=== PATIENT | female | born 1955 | race Caucasian/White ===

== ENCOUNTER 2022-08-24 20:42 | Observation (INO) | payer MEDICARE ==
[2022-08-24] MEDS ORDERED: MAG HYDROX/AL HYDROX/SIMETH 30 ML, HYOSCYAMINE ELIXIR 10 ML, LIDOCAINE VISCOUS 2% 10 ML PO STA ×3 (21:32)
--- NOTE | 2022-08-24 21:34 | ED ---
ENT HPI - General Chief complaint: ENT Stated complaint: MORALES from FB Time Seen by Provider: 08/24/22 21:27 Source: patient, RN notes reviewed, old records reviewed Mode of arrival: ambulatory Limitations: no limitations - History of Present Illness Initial comments: This is a 67-year-old female presents to ER today for evaluation. She is presented today for esophageal foreign body unable tolerate secretions cannot swallow she was eating carrots tonight and was unable to vomit up care feels like it is stuck and is unable to tolerate any oral intake including solids and liquids and saliva. MD complaint: foreign body -: hour(s) Location: throat Severity: severe Severity scale (1-10): 10 Consistency: constant Improves with: none Worsens with: none Context-Epistaxis: history of similar Associated Symptoms: other (0) - Related Data Allergies Allergy/AdvReac Type Severity Reaction Status Date / Time NSAIDS (Non-Steroidal Allergy Unknown Verified 08/24/22 20:48 Anti-Inflamma Penicillins Allergy Unknown Verified 08/24/22 20:48 Sulfa (Sulfonamide Allergy Unknown Verified 08/24/22 20:48 Antibiotics) Review of Systems ROS Statement: Those systems with pertinent positive or pertinent negative responses have been documented in the HPI. ROS Other: All systems not noted in ROS Statement are negative. Past Medical History Past Medical History: No Reported History Additional Past Medical History / Comment(s): kidney stones History of Any Multi-Drug Resistant Organisms: None Reported Past Surgical History: Appendectomy, Orthopedic Surgery, Tonsillectomy Past Psychological History: No Psychological Hx Reported Smoking Status: Never smoker Past Alcohol Use History: None Reported Past Drug Use History: None Reported General Exam Limitations: no limitations General appearance: alert, in no apparent distress, anxious Head exam: Present: atraumatic, normocephalic, normal inspection Eye exam: Present: normal appearance, PERRL, EOMI. Absent: scleral icterus, conjunctival injection, periorbital swelling ENT exam: Present: normal exam, mucous membranes moist Neck exam: Present: normal inspection. Absent: tenderness, meningismus, lymphadenopathy Respiratory exam: Present: normal lung sounds bilaterally. Absent: respiratory distress, wheezes, rales, rhonchi, stridor Cardiovascular Exam: Present: regular rate, normal rhythm, normal heart sounds. Absent: systolic murmur, diastolic murmur, rubs, gallop, clicks GI/Abdominal exam: Present: soft, normal bowel sounds. Absent: distended, tenderness, guarding, rebound, rigid Extremities exam: Present: normal inspection, full ROM, normal capillary refill. Absent: tenderness, pedal edema, joint swelling, calf tenderness Back exam: Present: normal inspection Neurological exam: Present: alert, oriented X3, CN II-XII intact Psychiatric exam: Present: normal affect, normal mood Skin exam: Present: warm, dry, intact, normal color. Absent: rash Course Vital Signs 08/24/22 08/24/22 20:49 20:59 Temperature 98.8 F 98.4 F Pulse Rate 112 H 98 Respiratory 22 16 Rate Blood Pressure 161/87 160/87 O2 Sat by Pulse 98 99 Oximetry - Reevaluation(s) Reevaluation #1: 08/24/22 22:42 Medical record is reviewed Reevaluation #2: 08/24/22 22:42 Patient is mildly anxious but not short of breath Reevaluation #3: 08/24/22 22:42 Patient informed results and questions have been answered - Consultations Consultation #1: spoke Dr. Garcia regarding GI evaluation she is agreeable Medical Decision Making - Medical Decision Making 67 female DF for evaluation. Patient's positive esophageal foreign body unable to tolerate patient's, will admit in observation status for GI procedures Disposition Clinical Impression: Esophageal foreign body Disposition: ADMITTED IP TO THIS [facility] Condition: Good Is patient prescribed a controlled substance at d/c from ED?: No Referrals: None,Stated [REFERRING] - 1-2 days Time of Disposition: 22:45
--- NOTE | 2022-08-24 21:57 | XR ---
EXAMINATION TYPE: XR chest 1V portable DATE OF EXAM: 08/24/2022 9:53 PM COMPARISON: None TECHNIQUE: XR chest 1V portable Frontal view of the chest. CLINICAL INDICATION:Female, 67 years old with history of FB; FINDINGS: Lungs/Pleura: There is no evidence of pleural effusion, focal consolidation, or pneumothorax. Pulmonary vascularity: Unremarkable. Heart/mediastinum: Cardiomediastinal silhouette is unremarkable. Musculoskeletal: No acute osseous pathology. IMPRESSION: No acute cardiopulmonary disease/process.
[2022-08-24] MEDS ORDERED: ONDANSETRON 4 MG/2 ML VIAL IVP STA (22:40)
[2022-08-24] MEDS ORDERED: SODIUM CHLORIDE 0.9% 1,000 ML IV STA (22:40)
[2022-08-24] MEDS ORDERED: MORPHINE SULFATE 2 MG/ML SYRINGE IVP STA (22:40)
[2022-08-24 23:33] LABS: Basophils # (A) 0.1 k/uL (0-0.2); Basophils % (A) 1 %; Eosinophils % (A) 0 %; HCT 39.2 % (34.0-46.0); HGB 12.9 gm/dL (11.4-16.0); Lymphocytes # (A) 1.3 k/uL (1.0-4.8); Lymphocytes % (A) 13 %; MCH 29.2 pg (25.0-35.0); MCHC 32.9 g/dL (31.0-37.0); MCV 88.6 fL (80.0-100.0); Monocytes # (A) 0.6 k/uL (0-1.0); Monocytes % (A) 6 %; Neutrophils # (A) 8.2 k/uL (1.3-7.7); Neutrophils % (A) 80 %; Platelet Count 259 k/uL (150-450); RBC 4.43 m/uL (3.80-5.40); RDW 13.2 % (11.5-15.5); WBC 10.3 k/uL (3.8-10.6)
[2022-08-24 23:45] LABS: INR 1.1 (<1.2); Partial Thromboplastin Time 28.1 sec (22.0-30.0); Prothrombin Time 11.7 sec (9.0-12.0)
[2022-08-25 00:09] LABS: ALT 17 U/L (4-34); AST 24 U/L (14-36); African American GFR (CKD) >90 (>60 ml/min/1.73 sqM); Albumin 4.2 g/dL (3.5-5.0); Alkaline Phosphatase 113 U/L (38-126); Anion Gap 7 mmol/L; Blood Urea Nitrogen 22 mg/dL (7-17); Calcium 8.5 mg/dL (8.4-10.2); Carbon Dioxide 24 mmol/L (22-30); Chloride 113 mmol/L (98-107); Glucose 114 mg/dL (74-99); Magnesium 1.9 mg/dL (1.6-2.3); Non-African American GFR(CKD) >90 (>60 ml/min/1.73 sqM); Potassium 3.5 mmol/L (3.5-5.1); Sodium 144 mmol/L (137-145); Total Bilirubin 0.7 mg/dL (0.2-1.3)
[2022-08-25 01:13] VITALS: RESP 16
--- NOTE | 2022-08-25 08:08 | P.DS ---
Providers Date of admission: 08/24/22 22:40 Expected date of discharge: 08/25/22 Attending physician: Neelam Garcia Primary care physician: Maria Fernanda Gibbs - Discharge Diagnosis(es) (1) Esophageal foreign body 67-year-old female who presented to the emergency department after eating a soft care at with feeling ready. Patient states that she felt as if the food was lodged in her chest. She was able to vomit up the care at home however states that she still felt like something was stuck and she was unable to swallow her saliva. She then had some pain that radiated into her chest to the right shoulder. She was admitted for observation and possible foreign body removal. However, this morning patient states she is feeling fine. She states that it has passed. She is able to swallow without difficulty. She denies any abdominal pain, nausea or vomiting. Patient trialed water as well as applesauce without any difficulty swallowing. She does also have a history of difficulty swallowing solid foods such as chicken and bread. Again appears as a foreign body has resolved on its own, patient does not require any endoscopic evaluation for foreign body removal. It is recommended to patient to follow-up with gastr oenterology for outpatient endoscopy in the future. Current Visit: Yes Status: Acute Hospital Course: 67-year-old female who presented to the emergency department after eating a soft care at with feeling ready. Patient states that she felt as if the food was lodged in her chest. She was able to vomit up the care at home however states that she still felt like something was stuck and she was unable to swallow her saliva. She then had some pain that radiated into her chest to the right shoulder. She was admitted for observation and possible foreign body removal. However, this morning patient states she is feeling fine. She states that it has passed. She is able to swallow without difficulty. She denies any abdominal pain, nausea or vomiting. Patient trialed water as well as applesauce without any difficulty swallowing. She does also have a history of difficulty swallowing solid foods such as chicken and bread. Again appears as a foreign body has resolved on its own, patient does not require any endoscopic evaluation for foreign body removal. It is recommended to patient to follow-up with gas troenterology for outpatient endoscopy in the future. Dr. Harry Garcia I agree with the dictator's note, documented as a scribe by Kelly Phillip. Patient Condition at Discharge: Stable Plan - Discharge Summary New Discharge Prescriptions: No Action No Known Home Medications Discharge Medication List No Known Home Medications 08/25/22 [History] Follow up Appointment(s)/Referral(s): Neelam Garcia MD [STAFF PHYSICIAN] - 2 Weeks None,Stated [REFERRING] - 1-2 days Discharge Disposition: HOME SELF-CARE
[2022-08-25 08:31] VITALS: BP 158/82; PULSE 78; TEMP 97.8
--- NOTE | 2022-08-25 11:06 | P.HPIM ---
History of Present Illness H&P Date: 08/25/22 Chief Complaint: Dysphagia, esophageal foreign body This is a pleasant 67-year-old female who presented to the emergency department yesterday evening after eating a small bite of a cooked care at around 3 PM. Patient states it felt like it gets stuck in her throat, she vomited however after vomiting she still felt as if her saliva would not go down and that there was something stuck in her esophagus. She presented to the emergency department with complaints of some gas pain and bubbles in her chest radiating up to her right shoulder. She was admitted for observation for possible foreign body removal. She states that she has a history of narrowed esophagus in about 30 years ago underwent an EGD at that time and a procedure. She is not followed with anyone since but states that she frequently gets food that sticks especially dry foods like chicken and bread. This morning the patient states she feels better, she has no shortness of breath, she has no pain in her chest. She feels as if it has passed. I allowed the patient to take a sip of water and she states she feels fine, everything went down well. We then trialed some applesauce and again she states she feels well, she has no difficulty swallowing. She has no pain in her chest. she denies any abdominal pain, nausea, or vomiting.Patient also has a history of IBS with mixed constipation and diarrhea, she is not followed with gastroenterology.vital signs are stable, she's been afebrile. Review of Systems REVIEW OF SYSTEMS: CARDIOPULMONARY: No chest pain or shortness of breath. Gastrointestinal: patient initially felt that she had a foreign body, esophageal tightness and difficulty swallowing. No nausea or vomiting. No hematemesis, coffee-ground emesis. No rectal bleeding, or melena. GENITOURINARY: No dysuria or hematuria. MUSCULOSKELETAL: Reports normal range of motion. SKIN: No rashes. No jaundice. ENDOCRINE: No chills, fevers. No excessive weight gain or loss. No polydipsia or polyuria. PSYCHIATRIC: Unremarkable. NEUROLOGY: No change in mental status. Denies dizziness, headache. ENT: Vision unremarkable. CONSTITUTIONAL: No recent weight loss. No fever, chills, night sweats. Past Medical History Past Medical History: Osteoarthritis (OA), Pneumonia, Renal Disease Additional Past Medical History / Comment(s): Dysphagia at times, kidney stones, IBS, bronchitis, arthritis R knee with chronic R knee pain, IBS. History of Any Multi-Drug Resistant Organisms: None Reported Past Surgical History: Appendectomy, Orthopedic Surgery, Tonsillectomy Additional Past Surgical History / Comment(s): Lithotripsy, R knee arthroscopic surgeries x 3, D&C. Past Anesthesia/Blood Transfusion Reactions: Previous Problems w/ Anesthesia, Motion Sickness, Postoperative Nausea & Vomiting (PONV) Additional Past Anesthesia/Blood Transfusion Reaction / Comment(s): Difficulty waking. Smoking Status: Never smoker - Past Family History Father Additional Family Medical History / Comment(s): Father is , he had rheumatic fever and from "heart problems". Mother Additional Family Medical History / Comment(s): Mother at the age of 71 yrs from a unknown source bleed. Medications and Allergies Home Medications Medication Instructions Recorded Confirmed Type No Known Home Medications 08/25/22 08/25/22 History Allergies Allergy/AdvReac Type Severity Reaction Status Date / Time latex Allergy Rash/Hives Verified 08/25/22 06:46 NSAIDS (Non-Steroidal Allergy Rash/Hives Verified 08/25/22 06:46 Anti-Inflamma Penicillins Allergy Anaphylaxis Verified 08/25/22 06:46 /Hives Sulfa (Sulfonamide Allergy Rash/Hives Verified 08/25/22 06:46 Antibiotics) acetaminophen [From Tylenol] AdvReac Rapid Verified 08/25/22 06:47 Heart Rate steroids Allergy Rash/Hives Uncoded 08/25/22 06:46 Physical Exam Vitals: Vital Signs Temp Pulse Pulse Resp BP BP Pulse Ox 08/25/22 07:30 97.8 F 78 16 158/82 99 08/25/22 06:55 98.1 F 68 16 167/85 98 08/25/22 05:35 97.8 F 82 16 157/98 100 08/25/22 01:12 80 16 155/83 98 08/24/22 23:27 98.2 F 80 18 160/128 100 08/24/22 20:59 98.4 F 98 16 160/87 99 08/24/22 20:49 98.8 F 112 H 22 161/87 98 Intake and Output 08/24/22 08/25/22 08/25/22 22:59 06:59 14:59 Other: Weight 84.822 kg 84.822 kg General appearance: The patient is alert, oriented, appears in no acute distress. HET: Head is normocephalic and atraumatic. Conjunctiva pink. Sclera anicteric. Neck: Supple without lymphadenopathy. Trachea midline. Heart: S1 S2. Regular rate and rhythm. Lungs: Clear to auscultation. Abdomen: Soft, nontender, nondistended with bowel sounds. No guarding or rigidity. Skin: No rashes. No jaundice. Extremities: Normal skin color and turgor. No pedal edema. Neurological: No focal deficits. Alert and oriented x3. Results CBC & Chem 7: 08/24/22 23:18 08/24/22 23:18 Labs: Abnormal Lab Results - Last 24 Hours (Table) 08/24/22 08/24/22 Range/Units 23:18 23:18 Neutrophils # 8.2 H (1.3-7.7) k/uL Chloride 113 H (98-107) mmol/L BUN 22 H (7-17) mg/dL Glucose 114 H (74-99) mg/dL Chest x-ray: report reviewed (No cardiopulmonary acute process or disease) Thrombosis Risk Factor Assmnt - Choose All That Apply Any of the Below Risk Factors Present?: Yes Each Factor Represents 1 point: Obesity (BMI >25), Swollen legs (current) Other Risk Factors: Yes Each Risk Factor Represents 2 Points: Age 61-74 years Other congenital or acquired thrombophilia - If yes, enter type in comment: No Thrombosis Risk Factor Assessment Total Risk Factor Score: 4 Thrombosis Risk Factor Assessment Level: Moderate Risk Assessment and Plan (1) Esophageal foreign body Narrative/Plan: 67-year-old female who presented to the emergency department after eating a soft care at with feeling ready. Patient states that she felt as if the food was lodged in her chest. She was able to vomit up the care at home however states that she still felt like something was stuck and she was unable to swallow her saliva. She then had some pain that radiated into her chest to the right shoulder. She was admitted for observation and possible foreign body removal. Chest x-ray showed no cardiopulmonary acute process or disease. However, this morning patient states she is feeling fine. She states that it has passed. She is able to swallow without difficulty. She denies any abdominal pain, nausea or vomiting. Patient trialed water as well as applesauce without any difficulty swallowing. She does also have a history of difficulty swallowing solid foods s uch as chicken and bread. Again appears as a foreign body has resolved on its own, patient does not require any endoscopic evaluation for foreign body removal. It is recommended to patient to follow-up with gastroenterology for outpatient endoscopy in the future. Current Visit: Yes Status: Acute Code(s): T18.108A - UNSP FOREIGN BODY IN ESOPHAGUS CAUSING OTH INJURY, INIT SNOMED Code(s): 94958364 Plan: 1. Continue symptomatic and supportive care 2. Start patient on clear liquid and advanced to full liquid diet 3. Esophageal foreign body passed on its own, patient does not require any endoscopic intervention at this time. 4. Patient may be discharged home after tolerating full liquid diet. Patient instructed to stand full liquid diet throughout today. 5. Patient encouraged to follow-up with gastroenterology for outpatient EGD in the future to evaluate for history of dysphagia. Patient is cleared for discharge. Dr. Harry Garcia I agree with the dictator's note, documented as a scribe by Kelly Phillip.
== END 2022-08-25 11:23 | disposition home or self-care (01) ==
LOC: EC 20:42 → 6NMEDSUR 22:40
PROVIDERS: ADMIT Internal Medicine Gastroenterology; ATTEND Internal Medicine Gastroenterology
DX: T18.128A Food in esophagus causing other injury, initial encounter (principal); K58.2 Mixed irritable bowel syndrome; M17.11 Unilateral primary osteoarthritis, right knee; Z88.0 Allergy status to penicillin; Z88.2 Allergy status to sulfonamides; Z87.442 Personal history of urinary calculi; Z88.6 Allergy status to analgesic agent; Z88.8 Allergy status to other drugs, medicaments and biological substances; Z91.040 Latex allergy status; X58.XXXA Exposure to other specified factors, initial encounter; Y92.89 Other specified places as the place of occurrence of the external cause
CPT/HCPCS: 96374; 96375; 99284; 80053; 83735; 84100; 85025; 85610; 85730; 71045; G0378 ×2; J2405; J2270